=== PATIENT | female | born 1985 | race Two or more races ===

== ENCOUNTER 2022-05-16 20:21 | Emergency (ER) | payer OTHER ==
[~2022-05-16] VITALS: Ht 167.6 cm; Wt 69.0 kg
[2022-05-16 20:22] VITALS: BP 135/85
[2022-05-16] MEDS ORDERED: IBUPROFEN 600MG TABLET PO STA (20:26)
[2022-05-16 21:20] LABS: BASOPHILS % 0.4 % (0.0-2.0); EOSINOPHILS % 1.3 % (0.0-5.0); HEMATOCRIT. 40.5 % (36.0-48.0); HEMOGLOBIN. 13.6 g/dL (12.0-16.0); LYMPHOCYTES % 34.7 % (20.0-50.0); MEAN CORPUSCULAR HEMOGLOBIN 30.8 pg (28.0-32.0); MEAN CORPUSCULAR VOLUME 91.9 fL (81.0-99.0); MEAN PLATELET VOLUME 8.7 fl (7.4-10.4); MONOCYTES % 6.4 % (2.0-8.0); NEUTROPHILS % 57.2 % (40.0-76.0); PLATELET 246 x1000/uL (130-400); RED CELL DISTRIBUTION WIDTH 13.4 % (11.6-14.6)
[2022-05-16 21:25] LABS: CHLORIDE 105 mEq/L (98-107)
[2022-05-16] MEDS ORDERED: IBUP-2029 MT (22:07)
== END 2022-05-16 22:20 | disposition home or self-care (01) ==
LOC: ER 20:21
DX: R07.89 Other chest pain (principal); E78.00 Pure hypercholesterolemia, unspecified
CPT/HCPCS: 36415; 71045; 80053; 81025; 84484; 85025; 93005; 99285